=== PATIENT | male | born 1990 | race Two or more races ===

== ENCOUNTER 2016-03-15 19:12 | Emergency (ER) | payer OTHER ==
[~2016-03-15] VITALS: Ht 165.1 cm; Wt 113.4 kg
[~2016-03-15 19:12] MED LIST: CLON2TAB PO; HYDR-429 PO; PARO20TA51 PO
[2016-03-15] MEDS ORDERED: ONDANSETRON 4 MG TAB.RAPDIS ONE (19:46)
[2016-03-15] MEDS ORDERED: LORAZEPAM INJ 2 MG/ML VIAL ONE ×3 (19:46→22:54)
[2016-03-15] MEDS ORDERED: LORAZEPAM INJ 2 MG/ML VIAL IM ONE (20:00)
[2016-03-15] MEDS ORDERED: ONDANSETRON 4 MG TAB.RAPDIS SL ONE (20:00)
[2016-03-15] MEDS ORDERED: LORAZEPAM INJ 2 MG/ML VIAL IV ONE ×2 (21:00→23:00)
[2016-03-15 21:07] LABS: BASOPHILS # (AUTO) 0.4 /CMM (0.0-0.2); BASOPHILS % (AUTO) 2.5 % (0.0-2.0); DIFF TOTAL % 100 %; EOSINOPHILS % (AUTO) 0.2 % (0.0-6.0); HEMATOCRIT 52 % (39-51); HEMOGLOBIN 17.5 g/dL (13.5-17.5); LYMPHOCYTES # (AUTO) 2.1 /CMM (0.8-4.8); LYMPHOCYTES % (AUTO) 12.6 % (20.0-44.0); MEAN CORPUSCULAR HEMOGLOBIN 31 PG (26.0-33.0); MEAN CORPUSCULAR HGB CONC 34 g/dl (31.0-36.0); MEAN CORPUSCULAR VOLUME 92 fL (80-96); MONOCYTES # (AUTO) 0.9 /CMM (0.1-1.30); MONOCYTES % (AUTO) 5.3 % (2.0-12.0); NEUTROPHILS # (AUTO) 12.9 /CMM (1.8-8.9); NEUTROPHILS % (AUTO) 79.4 % (43.0-81.0); PLATELET COUNT (AUTO) 353 /CMM (150-450); RED BLOOD CELL COUNT(AUTO) 5.67 MIL/uL (4.5-6.0); WHITE BLOOD COUNT (AUTO) 16.3 K/uL (4.3-11.0)
[2016-03-15 21:16] LABS: CREATININE 1.3 mg/dL (0.6-1.3); POTASSIUM 3.4 mmol/L (3.5-5.1)
[2016-03-15 21:22] LABS: ALBUMIN 4.5 g/dL (3.4-5.0); BILIRUBIN,DIRECT 0.1 mg/dL (0.0-0.2); BILIRUBIN,TOTAL 0.3 mg/dL (0.2-1.0); INDIRECT BILIRUBIN 0.2 mg/dL (0.0-1.1); TOTAL PROTEIN, SERUM 9.3 g/dL (6.4-8.2)
[2016-03-15] MEDS ORDERED: IV SET PRIMARY 1 EA INFUS.SET MC ONE (22:53)
[2016-03-15] MEDS ORDERED: METOCLOPRAMIDE HCL 10 MG/2 ML VIAL ONE (22:53)
[2016-03-15] MEDS ORDERED: IV NS 0.9% 1,000 ML ONE (22:53)
[2016-03-15] MEDS ORDERED: IV NS 0.9% 1,000 ML BAG IV ONE (23:00)
[2016-03-15] MEDS ORDERED: METOCLOPRAMIDE HCL 10 MG/2 ML VIAL IV ONE (23:00)
[2016-03-16 00:42] VITALS: BP 138/85
== END 2016-03-16 00:43 | disposition home or self-care (01) ==
LOC: ER 19:13
DX: K85.90 Acute pancreatitis without necrosis or infection, unspecified (principal); F10.20 Alcohol dependence, uncomplicated; E87.6 Hypokalemia; F15.93 Other stimulant use, unspecified with withdrawal; F41.9 Anxiety disorder, unspecified; F32.9 Major depressive disorder, single episode, unspecified; Z88.8 Allergy status to other drugs, medicaments and biological substances
CPT/HCPCS: 36415; 80048; 80076; 83690; 85025; 93005; 96361; 96372; 96374; 96375; 96376; 99285; A4606; J2060 ×3; J2765; J7030; Q0162; Z7610

== ENCOUNTER 2016-04-05 21:20 | Emergency (ER) | payer OTHER ==
[~2016-04-05 21:20] MED LIST changes: -HYDR-429 PO; +HYDR-548 PO
== END 2016-04-06 00:14 | disposition left against medical advice (07) ==
LOC: ER 21:22
DX: Z53.21 Procedure and treatment not carried out due to patient leaving prior to being seen by health care provider (principal)

== ENCOUNTER 2016-06-01 04:41 | Emergency (ER) | payer OTHER ==
[~2016-06-01] VITALS: Ht 172.7 cm; Wt 99.8 kg
--- NOTE | 2016-06-01 04:52 | NUR ---
PT ALTERED, BREATHING EFFORTLESSLY ON ROOM AIR, PER EMS, PT HAS BEEN ON A 3 WEEK DRINKING BINDGE AND PUT A KNIFE TO HIS THROAT TONIGHT STATING HE WANTED TO KILL HIMSELF, PT DENIES HI, PT DENIES HEARING VOICES, PT ON MONITOR, MD CARIDAD MADE AWARE WILL CONTINUE TO MONITOR.
[2016-06-01 05:15] LABS: BASOPHILS # (AUTO) 0.1 /CMM (0.0-0.2); BASOPHILS % (AUTO) 0.7 % (0.0-2.0); EOSINOPHILS # (AUTO) 0.1 /CMM (0.0-0.7); EOSINOPHILS % (AUTO) 0.9 % (0.0-6.0); HEMATOCRIT 43 % (39-51); HEMOGLOBIN 14.3 g/dL (13.5-17.5); LYMPHOCYTES # (AUTO) 2.9 /CMM (0.8-4.8); LYMPHOCYTES % (AUTO) 43.1 % (20.0-44.0); MEAN CORPUSCULAR HEMOGLOBIN 32 PG (26.0-33.0); MEAN CORPUSCULAR HGB CONC 33 g/dl (31.0-36.0); MEAN CORPUSCULAR VOLUME 95 fL (80-96); MONOCYTES # (AUTO) 0.7 /CMM (0.1-1.30); NEUTROPHILS % (AUTO) 44.3 % (43.0-81.0); PLATELET COUNT (AUTO) 283 /CMM (150-450); RDW COEFFICIENT OF VARIATION 15.6 (11.5-15.0); RED BLOOD CELL COUNT(AUTO) 4.53 MIL/uL (4.5-6.0); WHITE BLOOD COUNT (AUTO) 6.7 K/uL (4.3-11.0)
[2016-06-01 05:24] LABS: CALCIUM, SERUM 8.6 mg/dL (8.5-10.1); POTASSIUM 3.5 mmol/L (3.5-5.1)
[2016-06-01 05:33] LABS: BILIRUBIN,DIRECT 0.1 mg/dL (0.0-0.2); BILIRUBIN,TOTAL 0.2 mg/dL (0.2-1.0); PHENCYCLIDINE SCREEN,URINE NEGATIVE (NEGATIVE); TOTAL PROTEIN, SERUM 8.3 g/dL (6.4-8.2)
[2016-06-01 05:34] LABS: CANNABINOID, URINE POSITIVE (NEGATIVE); SALICYLATE 1.6 mg/dL (2.8-20.0)
--- NOTE | 2016-06-01 09:00 | NUR ---
RECEIVED SLEEPING,NAD, NO PIV NOTED
--- NOTE | 2016-06-01 09:40 | NUR ---
awake/alert,oriented x 4, denies suicidal/homicidal ideation, verbalized he wants to go home, dr diaz informed
--- NOTE | 2016-06-01 09:50 | NUR ---
DR ELLIS AT BEDSIDE FOR EVAL
[2016-06-01 09:55] VITALS: BP 132/88
--- NOTE | 2016-06-01 10:14 | NUR ---
Patient discharged to home in stable condition. Written and verbal after care instructions given. Patient verbalizes understanding of instruction.
== END 2016-06-01 10:20 | disposition home or self-care (01) ==
LOC: ER 04:45
DX: F10.129 Alcohol abuse with intoxication, unspecified (principal); R45.851 Suicidal ideations; F32.9 Major depressive disorder, single episode, unspecified; F41.9 Anxiety disorder, unspecified; Z88.8 Allergy status to other drugs, medicaments and biological substances
CPT/HCPCS: 36415; 80048-TC; 80076-TC; 80305; 85025-TC; A4606; G0480; G6039-TC; Z7610

== ENCOUNTER 2016-06-12 09:29 | Emergency (ER) | payer OTHER ==
[~2016-06-12] VITALS: Ht 177.8 cm; Wt 111.1 kg
--- NOTE | 2016-06-12 09:30 | NUR ---
AAOX3, BIBRA 39, [facility] NOTED. LAST ETOH WAS YESTERDAY MORNING. SKIN IS WARM AND DRY. AWAITING MD FOR EVAL.
[2016-06-12] MEDS ORDERED: IV NS 0.9% 1,000 ML BAG IV ONE (10:30)
[2016-06-12] MEDS ORDERED: PHARMACY ADD 1 AMP MVI TO IVF DAILY ONE BAG XX PRN (10:30)
[2016-06-12] MEDS ORDERED: LORAZEPAM INJ 2 MG/ML VIAL IV ONE (10:30)
[2016-06-12] MEDS ORDERED: Thiamine 100 MG in IV D5W 50 ML IV SCH (10:30)
[2016-06-12] MEDS ORDERED: Folic acid 1 MG in IV D5W 50 ML IV SCH (10:30)
[2016-06-12] MEDS ORDERED: ZIPRASIDONE MESYLATE 20 MG/VIAL VIAL IM ONE ×2 (10:30→11:53)
[2016-06-12] MEDS ORDERED: IV SET PRIMARY PUMP SET 1 EA INFUS.SET MC ONE (10:39)
[2016-06-12] MEDS ORDERED: LORAZEPAM INJ 2 MG/ML VIAL ONE (10:40)
[2016-06-12 10:44] LABS: APPEARANCE,URINE Clear (CLEAR); BILIRUBIN,URINE Negative (NEGATIVE); BLOOD, URINE Trace-lysed Ery/uL (NEGATIVE); COLOR,URINE Yellow (YELLOW); KETONES,URINE 40 (NEGATIVE); LEUKOCYTE ESTERASE ,URINE Negative (NEGATIVE); NITRITE, URINE Negative (NEGATIVE); PROTEIN,URINE 100 mg/dl (NEGATIVE); UGLUCOSE Negative (NEGATIVE); UROBILINOGEN,URINE 0.2 EU/dL (0.2)
[2016-06-12 10:49] LABS: BASOPHILS % (AUTO) 0.8 % (0.0-2.0); EOSINOPHILS % (AUTO) 0.3 % (0.0-6.0); HEMATOCRIT 46 % (39-51); LYMPHOCYTES # (AUTO) 1.3 /CMM (0.8-4.8); LYMPHOCYTES % (AUTO) 23.3 % (20.0-44.0); MEAN CORPUSCULAR HEMOGLOBIN 31 PG (26.0-33.0); MEAN CORPUSCULAR HGB CONC 33 g/dl (31.0-36.0); MEAN CORPUSCULAR VOLUME 95 fL (80-96); MONOCYTES # (AUTO) 0.6 /CMM (0.1-1.30); MONOCYTES % (AUTO) 10.1 % (2.0-12.0); NEUTROPHILS # (AUTO) 3.6 /CMM (1.8-8.9); NEUTROPHILS % (AUTO) 65.5 % (43.0-81.0); PLATELET COUNT (AUTO) 241 /CMM (150-450); RDW COEFFICIENT OF VARIATION 14.6 (11.5-15.0); WHITE BLOOD COUNT (AUTO) 5.5 K/uL (4.3-11.0)
[2016-06-12 10:53] LABS: CALCIUM, SERUM 9.2 mg/dL (8.5-10.1); CARBON DIOXIDE 25 mmol/L (21-32); CHLORIDE 105 mmol/L (98-107); GFR 91 mL/min (>60); GLUCOSE 122 mg/dL (74-106); PHENCYCLIDINE SCREEN,URINE NEGATIVE (NEGATIVE); POTASSIUM 3.9 mmol/L (3.5-5.1); SODIUM SERUM 142 mmol/L (136-145); UREA NITROGEN, BLOOD 8 mg/dL (7-18)
[2016-06-12 10:59] LABS: ALANINE AMINOTRANSFERASE 190 U/L (12-78); ALBUMIN 4.1 g/dL (3.4-5.0); ALCOHOL, BLOOD < 3 mg/dL (0-0); ALKALINE PHOSPHATASE 56 U/L (46-116); ASPARTATE AMINOTRANSFERASE 124 U/L (15-37); BILIRUBIN,DIRECT 0.3 mg/dL (0.0-0.2); BILIRUBIN,TOTAL 0.9 mg/dL (0.2-1.0); TOTAL PROTEIN, SERUM 8.3 g/dL (6.4-8.2)
[2016-06-12] MEDS ORDERED: MVI ADULT IV ONE (11:00)
[2016-06-12] MEDS ORDERED: FOLIC ACID IV ONE (11:00)
[2016-06-12] MEDS ORDERED: [UNRECOGNIZED DRUG - OTHER] IV ONE (11:00)
[2016-06-12] MEDS ORDERED: THIAMINE IV ONE (11:00)
[2016-06-12 11:01] LABS: ACETAMINOPHEN 0 ug/ml (10-30); ADD URINE CULTURE NO; BACTERIA,URINE Rare /HPF (None Seen); RBC,URINE 0-2 /HPF (0-2); SALICYLATE 0.4 mg/dL (2.8-20.0); SQUAMOUS EPITHELIAL CELL,UR Few /HPF (None Seen); WBC,URINE 0-2 /HPF (0-3)
[2016-06-12 11:03] LABS: CANNABINOID, URINE POSITIVE (NEGATIVE)
--- NOTE | 2016-06-12 11:38 | NUR ---
AMY RN AT BEDSIDE FOR PSYCH EVAL.
[2016-06-12] MEDS ORDERED: clonazePAM 1 MG TABLET PO ONE (12:00)
[2016-06-12] MEDS ORDERED: clonazePAM 1 MG TABLET ONE (12:04)
--- NOTE | 2016-06-12 12:17 | NUR ---
CALLED [facility] FOR S AMBULANCE ETA 1300
--- NOTE | 2016-06-12 13:15 | NUR ---
TRANSFERRED TO [facility] VN IN STABLE CONDITION.
[2016-06-12 13:42] VITALS: BP 142/83
== END 2016-06-12 13:43 | disposition other institution (70) ==
LOC: ER 09:31
DX: F32.9 Major depressive disorder, single episode, unspecified (principal); F41.9 Anxiety disorder, unspecified; I10 Essential (primary) hypertension; Z88.8 Allergy status to other drugs, medicaments and biological substances
CPT/HCPCS: 36415; 71010; 80048; 80076; 80305; 80329; 81001; 85025; 93005; 96365; 96366; 96375; 99285; A4606; G0480 ×2; J2060; J3411; J3486; J3490; J7030; Z7610; 81000-TC; G6039-TC

== ENCOUNTER 2016-07-03 22:22 | Emergency (ER) | payer OTHER ==
[~2016-07-03] VITALS: Ht 177.8 cm; Wt 111.1 kg
[2016-07-03 22:30] VITALS: BP 144/84
--- NOTE | 2016-07-03 23:13 | NUR ---
DR. ABEL AT BEDSIDE FOR EVAL.
[2016-07-03] MEDS ORDERED: MIRTAZAPINE 15 MG TABLET ONE (23:39)
[2016-07-03] MEDS ORDERED: LORAZEPAM 1 MG TABLET ONE (23:39)
--- NOTE | 2016-07-03 23:43 | NUR ---
MOTHER AT BEDSIDE
[2016-07-04] MEDS ORDERED: LORAZEPAM 1 MG TABLET PO ONE
[2016-07-04] MEDS ORDERED: MIRTAZAPINE 15 MG TABLET PO ONE ×2
== END 2016-07-03 23:53 | disposition home or self-care (01) ==
LOC: ER 22:24
DX: F41.9 Anxiety disorder, unspecified (principal); F32.9 Major depressive disorder, single episode, unspecified; I10 Essential (primary) hypertension; Z88.8 Allergy status to other drugs, medicaments and biological substances; F10.20 Alcohol dependence, uncomplicated
CPT/HCPCS: A4606; Z7610

== ENCOUNTER 2016-10-27 15:44 | Emergency (ER) | payer OTHER ==
[~2016-10-27] VITALS: Ht 172.7 cm; Wt 108.9 kg
--- NOTE | 2016-10-27 15:50 | NUR ---
PATIENT PRESENTS TO ER D/T ANXIETY ATTACK, STATING HE FORGOT TO TAKE HIM MEDICATIONS. PATIENT IS FEELING NERVOUS WITH CHEST DISCOMFORT. A/OX 4. NO SOB. VITALS STABLE. SAFETY AND COMFORT MEAURES IN PLACE. AWAITING MD ORDERS.
[2016-10-27] MEDS ORDERED: LORAZEPAM INJ 2 MG/ML VIAL IV STA (16:10)
[2016-10-27] MEDS ORDERED: IV NS 0.9% 1,000 ML BAG IV ONE (16:30)
[2016-10-27] MEDS ORDERED: LORAZEPAM INJ 2 MG/ML VIAL ONE (17:18)
--- NOTE | 2016-10-27 17:30 | NUR ---
NEW IV STARTED ON RIGHT HAND, 20 G. PATIENT MEDICATED PER MD ORDERS.
[2016-10-27 18:44] VITALS: BP 138/82
--- NOTE | 2016-10-27 18:48 | NUR ---
Patient discharged to home in stable condition. Written and verbal after care instructions given. Patient verbalizes understanding of instruction.
== END 2016-10-27 18:44 | disposition home or self-care (01) ==
LOC: ER 15:48
DX: F41.9 Anxiety disorder, unspecified (principal); I10 Essential (primary) hypertension; F32.9 Major depressive disorder, single episode, unspecified; Z88.8 Allergy status to other drugs, medicaments and biological substances
CPT/HCPCS: 96361; 96374; 99284; A4606; J2060; J7030; Z7610

== ENCOUNTER 2016-10-31 02:05 | Inpatient (IN) | payer OTHER ==
[~2016-10-31] VITALS: Ht 180.3 cm; Wt 134.7 kg
[2016-10-31] MEDS ORDERED: ONDANSETRON 4 MG TAB.RAPDIS ONE (02:17)
[2016-10-31] MEDS ORDERED: FAMOTIDINE (20 MG) 20 MG TABLET ONE (02:17)
[2016-10-31] MEDS ORDERED: ONDANSETRON 4 MG TAB.RAPDIS SL ONE (02:30)
[2016-10-31] MEDS ORDERED: FAMOTIDINE (20 MG) 20 MG TABLET PO ONE (02:30)
[2016-10-31 02:43] LABS: BASOPHILS # (AUTO) 0.1 /CMM (0.0-0.2); BASOPHILS % (AUTO) 0.7 % (0.0-2.0); EOSINOPHILS # (AUTO) 0.1 /CMM (0.0-0.7); HEMATOCRIT 47 % (39-51); LYMPHOCYTES # (AUTO) 4.2 /CMM (0.8-4.8); LYMPHOCYTES % (AUTO) 44.4 % (20.0-44.0); MEAN CORPUSCULAR HEMOGLOBIN 32 PG (26.0-33.0); MEAN CORPUSCULAR HGB CONC 34 g/dl (31.0-36.0); MEAN CORPUSCULAR VOLUME 94 fL (80-96); MONOCYTES # (AUTO) 0.8 /CMM (0.1-1.30); MONOCYTES % (AUTO) 8.8 % (2.0-12.0); NEUTROPHILS # (AUTO) 4.3 /CMM (1.8-8.9); NEUTROPHILS % (AUTO) 45.1 % (43.0-81.0); PLATELET COUNT (AUTO) 304 /CMM (150-450); RDW COEFFICIENT OF VARIATION 16.7 (11.5-15.0); RED BLOOD CELL COUNT(AUTO) 5.03 MIL/uL (4.5-6.0); WHITE BLOOD COUNT (AUTO) 9.6 K/uL (4.3-11.0)
[2016-10-31 02:54] LABS: INR 1.03 (0.87-1.13)
[2016-10-31 02:57] LABS: ALBUMIN 4.1 g/dL (3.4-5.0); BILIRUBIN,DIRECT 0.1 mg/dL (0.0-0.2); BILIRUBIN,TOTAL 0.4 mg/dL (0.2-1.0); CALCIUM, SERUM 8.4 mg/dL (8.5-10.1); POTASSIUM 3.2 mmol/L (3.5-5.1); TOTAL PROTEIN, SERUM 8.6 g/dL (6.4-8.2)
--- NOTE | 2016-10-31 03:10 | NUR ---
26 YO MALE BB RA. PT IS ALERT X 3, C/O ABD PAIN. S/C ANXIETY. PT AMBULATED TOP ER BED, SKIN WARM AND DRY, RR EVEN AND UNLABORED. PT GOWNED, PLACED ON REGIONAL SAFETY MANAGER. AWAITING ORDERS FROM PROVIDER
[2016-10-31] MEDS ORDERED: Magnesium 1GM/D5W 100ML PREMIX 200 ML IV ONE (03:39)
[2016-10-31] MEDS ORDERED: ONDANSETRON HCL/PF 4 MG/2 ML VIAL ONE (03:39)
[2016-10-31] MEDS ORDERED: HYDROMORPHONE 1 MG/1 ML DISP.SYRIN ONE (03:40)
[2016-10-31] MEDS ORDERED: POTASSIUM CL. PREMIX PERIPHER. 50 ML ONE (03:40)
--- NOTE | 2016-10-31 03:56 | NUR ---
20G LEFT HAND IV STARTED. MEDICATED PT ORDERED
[2016-10-31] MEDS ORDERED: Magnesium 1 GM/2 ML VIAL IV ONE (04:00)
[2016-10-31] MEDS ORDERED: HYDROMORPHONE INJ 2 MG/ML DISP.SYRIN IV ONE (04:00)
[2016-10-31] MEDS ORDERED: ONDANSETRON HCL/PF 4 MG/2 ML VIAL IVP ONE (04:00)
[2016-10-31] MEDS ORDERED: IV NS 0.9% 1,000 ML BAG IV ONE ×2 (04:00→04:30)
[2016-10-31] MEDS: POTASSIUM CL. PREMIX PERIPHER. 50 ML IV SCH ×4 (04:23→09:04)
--- NOTE | 2016-10-31 04:24 | NUR ---
REPORT GIVEN TO GERMAN MOY FOR DANN
[2016-10-31] MEDS ORDERED: LORAZEPAM 1 MG TABLET ONE (04:34)
[2016-10-31 05:00] VITALS: BP 148/88
[2016-10-31] MEDS ORDERED: HYDROCODONE/APAP 5/325MG 1 EACH TABLET PO PRN (05:00)
[2016-10-31] MEDS ORDERED: ONDANSETRON HCL/PF 4 MG/2 ML VIAL IVP PRN (05:00)
[2016-10-31] MEDS ORDERED: ACETAMINOPHEN 325 MG TABLET PO PRN (05:00)
[2016-10-31] MEDS ORDERED: MAG HYDROX/AL HYDROX/SIMETH 30 ML UDC PO PRN (05:00)
[2016-10-31] MEDS ORDERED: ZOLPIDEM TARTRATE 5 MG TABLET PO PRN (05:00)
[2016-10-31] MEDS ORDERED: Z GUARD REMEDY 2 OZ OINT TP PRN (05:00)
[2016-10-31] MEDS ORDERED: LORAZEPAM INJ 2 MG/ML VIAL IV PRN (05:00)
[2016-10-31] MEDS ORDERED: MAGNESIUM HYDROXIDE 30 ML UDC PO PRN (05:00)
[2016-10-31] MEDS ORDERED: MORPHINE SULFATE INJ 2 MG/ML DISP.SYRIN IV PRN (05:00)
--- NOTE | 2016-10-31 05:10 | NUR ---
PT TRANSPORTED TO [facility] BED WITHOUT INCIDENT
--- NOTE | 2016-10-31 05:10 | NUR ---
ADMISSION NOTES: RECEIVED REPORT FROM BECK MOY, PT CAME IN FOR ABDOMINAL PAIN AND ANXIETY WILL BE ADMITTED FOR ACUTE PANCREATITIS, BROUGHT TO THE UNIT VIA WHEEL CHAIR PT IS A/O X3 AMBULATORY RESPIRATION EVEN AND UNLABORED, ON RA, VS TAKEN AND RECORDED, ORIENTED PT TO UNIT POLICY AND HOURLY ROUNDING, PT IS C/O 5/10 PAIN ON HIS ABDOMEN, ALSO FEELING DEPRESSED AND STATED HE WAS DRINKING HEAVY LIQUOR EVERY DAY 2BOTTLES A DAY AND SMOKING WEEDS AND CANNABIS LAST IS A WEEK AGO, PT HAS RIGHT HAND IV G20, PATENT AND FLUSHING WELL, ON HL, SAFETY PRECAUTIONS FOR FALL INITIATED CALL LIGHT IN REACH WILL CONTINUE TO MONITOR.
[2016-10-31 05:29] VITALS: BP 152/101
[2016-10-31] MEDS ORDERED: LORAZEPAM 1 MG TABLET PO PRN (05:30)
--- NOTE | 2016-10-31 05:30 | NUR ---
RN NOTES: SKIN ASSESSMENT PERFORMED NO SKIN ISSUE NOTED PT'S SKIN IS INTACT, ALSO WILL ADMINISTER 1L NS AT 200ML/HR AND WILL GIVE POTASSIUM REPLACEMENT,
[2016-10-31] MEDS: IV NS 0.9% 1,000 ML IV PRN ×3 (06:03→20:39)
[2016-10-31] MEDS ORDERED: ATEN50TA PO (06:31)
--- NOTE | 2016-10-31 07:00 | NUR ---
RN CLOSING NOTES: PT IN BED, AWAKE, REMAINS ON RA RESPIRATION EVEN AND UNLABORED, IV ACCESS REMAINS PATENT AND FLUSHING WELL, INFUSING WITH NS AT 200ML/HR, ALSO THERE'S ONGOING POTASSIUM REPLACEMENT AT 50ML/HR, VS REMAINS STABLE, NEEDS ATTENDED, WILL ENDORSE TO DAY RN FOR DANN.
--- NOTE | 2016-10-31 07:15 | NUR ---
MS RN NOTES RECEIVED PATIENT IN BED, AWAKE, A/O X4. BREATHING EVEN AND NON LABORED, NO SOB. IV NS INFUSING AT 200ML/HR, TOLERATING WELL. APPEARS CALM AND RELAX. NO C/O PAIN AT THIS TIME. CALL LIGHT WITHIN REACH. WILL CONT TO MONITOR.
[2016-10-31 08:00] VITALS: BP 111/69
[2016-10-31] MEDS: PANTOPRAZOLE 40 MG TABLET.DR PO SCH (08:41)
--- NOTE | 2016-10-31 09:01 | NUR ---
PATIENT IN BED, APPEARS ANXIOUS, NO SOB, ON ROOM AIR. PER PATIENT HE FEELS NERVOUS AND HE IS TAKING KLONOPIN 3 X DAY AT HOME FOR HIS ANXIETY. GIVEN ATIVAN 1MG IV FOR ANXIETY. WILL CONT TO MONITOR PATIENT AND WILL FOLLOW UP WITH MD REGARDING PATIENTS HOME MEDS.
--- NOTE | 2016-10-31 11:24 | NUR ---
Social service consult for possible homelessness. Pt. is a 26 year old male who was admitted to [facility] for pancreatitis. SW met with pt. bedside. Pt. is alert and oriented x 4. Pt. states he resides with his family at [address] [place] [address], [address] in [facility]. Pt's emergency contact are his mother Jessenia and aunt Paris . Pt. stated, he has been drinking alcohol everyday for the past month due to family stressors. Pt. denies using drugs. Pt. has chronic anxiety and takes Klonopin. Pt. does not have a therapist. SW to offer pt. outpatient mental health clinic resources prior to discharge. Pt. denies suicidal/homicidal ideations and visual/auditory hallucinations at this time. Pt. states his family will come to pick him up upon discharge. No other social service needs are required at this time. SW is available if needed. ABHIJIT informed CARY Oliver regarding discharge plan.
[2016-10-31] MEDS: clonazePAM 1 MG TABLET PO PRN ×2 (13:32→20:20)
[2016-10-31 16:00] VITALS: BP_SYST 135; BP_DIAS 80; BP_DIAS 84
[2016-10-31] MEDS: DIAZEPAM 5 MG TABLET PO PRN ×2 (17:34→23:51)
--- NOTE | 2016-10-31 18:57 | NUR ---
MS RN CLOSING NOTES PATIENT IN BED, A/O X4. NOT IN DISTRESS. APPEARS CALM AND RELAX IN BED. IVF NS INFUSING AT 200ML/HR, TOLERATING WELL, NO SOB. POTASSIUM SUPPLEMENTED TODAY. NO C/O PAIN AT THIS TIME. CALL LIGHT WITHIN REACH. WILL ENDORSE TO CIRCLE SAW OPERATOR RN FOR DANN.
--- NOTE | 2016-10-31 19:15 | NUR ---
RN OPEN NOTES RECEIVED PATIENT AWAKE IN BED WITH FAMILY AT BEDSIDE. A/O X4. NO SIGNS OF DISTRESS OR DISCOMFORT. BREATHING EVEN AND UNLABORED. IV ACCESS IN R HAND WITH NS INFUSING, PATENT AND INTACT, NO SIGNS OF REDNESS OR INFILTRATION. DENIES ANY PAIN AT THIS TIME. BED IN LOW HARI POSITION WITH SIDE RAILS X2. CALL LIGHT WITHIN REACH. WILL CONTINUE TO MONITOR.L
[2016-10-31 20:00] VITALS: BP 145/83
--- NOTE | 2016-10-31 20:20 | NUR ---
RN NOTES ADMINISTERED KLONOPIN 2MG ORDERED FOR ANXIETY. VSS. WILL CONTINUE TO MONITOR.
[2016-10-31 20:37] VITALS: BP 145/83
--- NOTE | 2016-10-31 23:51 | NUR ---
RN NOTES ADMINISTERED VALIUM 5MG ORDERED FOR ANXIETY. VSS. WILL CONTINUE TO MONITOR.
[2016-11-01] MEDS: IV NS 0.9% 1,000 ML IV PRN (05:41)
[2016-11-01 06:26] LABS: BASOPHILS % (AUTO) 0.6 % (0.0-2.0); EOSINOPHILS # (AUTO) 0.4 /CMM (0.0-0.7); HEMATOCRIT 43 % (39-51); HEMOGLOBIN 14.4 g/dL (13.5-17.5); LYMPHOCYTES # (AUTO) 2.3 /CMM (0.8-4.8); LYMPHOCYTES % (AUTO) 28.8 % (20.0-44.0); MEAN CORPUSCULAR HEMOGLOBIN 32 PG (26.0-33.0); MEAN CORPUSCULAR HGB CONC 34 g/dl (31.0-36.0); MEAN CORPUSCULAR VOLUME 96 fL (80-96); MONOCYTES # (AUTO) 0.7 /CMM (0.1-1.30); MONOCYTES % (AUTO) 9.3 % (2.0-12.0); NEUTROPHILS # (AUTO) 4.5 /CMM (1.8-8.9); NEUTROPHILS % (AUTO) 56.3 % (43.0-81.0); PLATELET COUNT (AUTO) 223 /CMM (150-450); RDW COEFFICIENT OF VARIATION 16.6 (11.5-15.0); RED BLOOD CELL COUNT(AUTO) 4.48 MIL/uL (4.5-6.0)
[2016-11-01 06:46] LABS: CALCIUM, SERUM 8.2 mg/dL (8.5-10.1); MAGNESIUM 1.6 mg/dL (1.8-2.4); PHOSPHORUS 3.7 mg/dL (2.5-4.9)
--- NOTE | 2016-11-01 06:55 | NUR ---
RN CLOSING NOTES PATIENT RESTING IN BED, EASILY AROUSABLE TO NAME. A/O X4. NO SIGNS OF DISTRESS OR DISCOMFORT. BREATHING EVEN AND UNLABORED. IV ACCESS IN R HAND WITH NS INFUSING, PATENT AND INTACT, NO SIGNS OF REDNESS OR INFILTRATION. DENIES ANY PAIN AT THIS TIME. NO SIGNIFICANT CHANGES THROUGH THE NIGHT. ALL NEEDS MET. BED IN LOW HARI POSITION WITH SIDE RAILS X2. CALL LIGHT WITHIN REACH. WILL ENDORSE TO AM SHIFT FOR DANN.
--- NOTE | 2016-11-01 07:41 | NUR ---
MS RN OPENING NOTE PATIENT IS ALERT AND ORIENTED x4. NO PAIN AT THIS TIME. NO SOB OR DISTRESS NOTED. CALL LIGHT WITHIN REACH. SAFETY MEASURES IMPLEMENTED. ABLE TO COMMUNICATE NEEDS. IV INTACT AND PATENT NO REDNESS OR SWELLING NOTED. AMBULATORY. WILL CONTINUE TO MONITOR
[2016-11-01 08:00] VITALS: BP 108/66
[2016-11-01] MEDS: PANTOPRAZOLE 40 MG TABLET.DR PO SCH (08:11)
--- NOTE | 2016-11-01 08:11 | NUR ---
MS RN NOTE PATIENT BLOOD PRESSURE LOW -108/66. WILL RECHECK.
[2016-11-01] MEDS ORDERED: ATENOLOL 50 MG TABLET PO SCH (09:00)
[2016-11-01] MEDS: clonazePAM 1 MG TABLET PO PRN (10:07)
[2016-11-01] MEDS ORDERED: Magnesium 1GM/D5W 100ML PREMIX 100 ML IV SCH (10:31)
[2016-11-01] MEDS ORDERED: MAGNESIUM OXIDE 400 MG TABLET PO ONE (11:00)
--- NOTE | 2016-11-01 11:10 | NUR ---
MS HARDWARE DEVELOPER NOTE PATIENT IS ALERT AND ORIENTED x4. NO PAIN AT THIS TIME. NO SOB OR DISTRESS NOTED. ALL DUE MEDICATION GIVEN ORDERED. MAGNESIUM-1.6 REPLACEMENT GIVEN PRIOR TO DISCHARGE. ALL BELONGINGS WITH PATIENT. ALL DISCHARGE INSTRUCTIONS GIVEN TO PATIENT, PATIENT ABLE TO RETURN INSTRUCTIONS WITH TEACH BACK. IV REMOVED, SKIN INTACT, NO REDNESS OR SWELLING NOTED. PRESCRIPTIONS GIVEN TO PATIENT, EDUCATED PATIENT ON SIDE EFFECTS AND IF THERE IS AN EMERGENCY TO CALL 911 OR GO TO ER. PATIENT GIVEN BUS TOKEN.
== END 2016-11-01 11:10 | disposition home or self-care (01) | DRG 282 ==
LOC: ER 02:06 → MED 04:19
PROVIDERS: ADMIT Internal Medicine; ATTEND Internal Medicine
DX: K85.20 Alcohol induced acute pancreatitis without necrosis or infection (principal); F13.20 Sedative, hypnotic or anxiolytic dependence, uncomplicated; R56.9 Unspecified convulsions; K76.0 Fatty (change of) liver, not elsewhere classified; I10 Essential (primary) hypertension; F32.9 Major depressive disorder, single episode, unspecified; E87.6 Hypokalemia; E66.9 Obesity, unspecified; F41.9 Anxiety disorder, unspecified; R74.0 Nonspecific elevation of levels of transaminase and lactic acid dehydrogenase [LDH]; F12.90 Cannabis use, unspecified, uncomplicated; Z68.41 Body mass index [BMI] 40.0-44.9, adult; F10.988 Alcohol use, unspecified with other alcohol-induced disorder
CPT/HCPCS: 36415; 71250-TC; 80048-TC; 80076-TC; 83690-TC; 83735-TC; 84100-TC; 85025-TC; 85730-TC; 87081-TC; A4606; J1170; J2060; J2405; J3475; J3480; J7030; Q0162; Z7610

== ENCOUNTER 2017-02-05 09:06 | Emergency (ER) | payer OTHER ==
[~2017-02-05] VITALS: Ht 172.7 cm; Wt 95.3 kg
[~2017-02-05 09:06] MED LIST changes: +ATEN50TA PO; -PARO20TA51 PO
[2017-02-05] MEDS ORDERED: ATENOLOL 50 MG TABLET PO ONE (10:00)
[2017-02-05] MEDS ORDERED: clonazePAM 1 MG TABLET PO ONE (10:00)
[2017-02-05] MEDS ORDERED: LORAZEPAM 1 MG TABLET PO ONE (10:00)
[2017-02-05] MEDS ORDERED: ATENOLOL 50 MG TABLET ONE (10:28)
[2017-02-05 11:02] VITALS: BP 139/91
== END 2017-02-05 11:02 | disposition home or self-care (01) ==
LOC: ER 09:07
DX: F41.9 Anxiety disorder, unspecified (principal); F10.20 Alcohol dependence, uncomplicated; I10 Essential (primary) hypertension; F32.9 Major depressive disorder, single episode, unspecified; Z88.8 Allergy status to other drugs, medicaments and biological substances
CPT/HCPCS: 99284; A4606; Z7610

== ENCOUNTER 2017-04-05 14:04 | Emergency (ER) | payer OTHER ==
[~2017-04-05] VITALS: Ht 172.7 cm; Wt 136.1 kg
[2017-04-05] MEDS ORDERED: ATENOLOL 50 MG TABLET PO ONE (16:30)
[2017-04-05] MEDS ORDERED: clonazePAM 1 MG TABLET PO ONE (16:30)
[2017-04-05] MEDS ORDERED: ATENOLOL 50 MG TABLET ONE (16:52)
[2017-04-05] MEDS ORDERED: clonazePAM 1 MG TABLET ONE (16:53)
[2017-04-05 16:56] VITALS: BP 145/75
== END 2017-04-05 16:59 | disposition home or self-care (01) ==
LOC: ER 14:07
DX: Z76.0 Encounter for issue of repeat prescription (principal); F41.9 Anxiety disorder, unspecified; F32.9 Major depressive disorder, single episode, unspecified; I10 Essential (primary) hypertension; F10.10 Alcohol abuse, uncomplicated
CPT/HCPCS: 99284; A4606; Z7610

== ENCOUNTER 2017-06-26 23:15 | Emergency (ER) | payer OTHER ==
[~2017-06-26] VITALS: Ht 165.1 cm; Wt 90.7 kg
[2017-06-26 23:15] VITALS: BP 107/70
[2017-06-26] MEDS ORDERED: IBUPROFEN 600 MG TABLET PO ONE (23:35)
[2017-06-26] MEDS ORDERED: LORAZEPAM 1 MG TABLET ONE (23:35)
[2017-06-26] MEDS ORDERED: CEFAZOLIN 1 GM ONE (23:35)
[2017-06-26] MEDS: LORAZEPAM 1 MG TABLET PO ONE (23:44)
[2017-06-26] MEDS: CEFAZOLIN 1 GM VIAL IM ONE (23:44)
[2017-06-26] MEDS: IBUPROFEN 600 MG TABLET PO ONE (23:44)
[2017-06-26] MEDS ORDERED: LIDOCAINE 1% INJ 50 ML MDV IJ ONE (23:45)
[2017-06-26] MEDS: LIDOCAINE 1% INJ 50 ML MDV IJ ONE (23:46)
--- NOTE | 2017-06-27 00:26 | NUR ---
PROTECTIVE SIGNAL OPERATOR DEGRASSE BEDSIDE FOR LAC REPAIR
== END 2017-06-27 02:15 | disposition home or self-care (01) ==
LOC: EDBD → ER 23:17
DX: S51.812A Laceration without foreign body of left forearm, initial encounter (principal); F41.9 Anxiety disorder, unspecified; F32.9 Major depressive disorder, single episode, unspecified; F10.10 Alcohol abuse, uncomplicated; I10 Essential (primary) hypertension; Z88.8 Allergy status to other drugs, medicaments and biological substances; X99.1XXA Assault by knife, initial encounter; Y93.89 Activity, other specified; Y92.89 Other specified places as the place of occurrence of the external cause; Y99.8 Other external cause status
CPT/HCPCS: 73090-TC; A4606; A6402; J0690; J3490; Z7610

== ENCOUNTER 2017-07-01 02:50 | Emergency (ER) | payer OTHER ==
--- NOTE | 2017-07-01 03:21 | NUR ---
CALLED PT IN WR. NO REPSONSE. LOOKED OUTSIDE WITH NO SITE OF PATIENT
== END 2017-07-01 03:37 | disposition left against medical advice (07) ==
LOC: EDUNIT# 02:50 → ER 02:57 → EDBD 02:57 → ER 03:37
DX: F41.9 Anxiety disorder, unspecified (principal); Z53.21 Procedure and treatment not carried out due to patient leaving prior to being seen by health care provider

== ENCOUNTER 2017-08-21 11:37 | Emergency (ER) | payer OTHER ==
[~2017-08-21] VITALS: Ht 165.1 cm; Wt 90.7 kg
--- NOTE | 2017-08-21 11:44 | NUR ---
RECIEVED PATIENT TO ED BED 12. PT IS COMPLAINING OF ANXIETY, SHAKING, FAST HEART RATE, NAUSEA AND VOMTIING. PTS STS HE DRANK ALCOHOL LAST NIGHT AND SMOKED MARIJUANA. GOWNED AND PLACED ON CONT MONITORING, NAD RR EVEN AND UNLABORED. ALL NEEDS ARE ATTENDED, WILL CONT TO MONITOR
[2017-08-21 11:58] LABS: BASOPHILS # (AUTO) 0.1 /CMM (0.0-0.2); BASOPHILS % (AUTO) 0.8 % (0.0-2.0); EOSINOPHILS % (AUTO) 1.5 % (0.0-6.0); HEMATOCRIT 47 % (39-51); HEMOGLOBIN 16.4 g/dL (13.5-17.5); LYMPHOCYTES # (AUTO) 2.5 /CMM (0.8-4.8); LYMPHOCYTES % (AUTO) 39.3 % (20.0-44.0); MEAN CORPUSCULAR HGB CONC 35 g/dl (31.0-36.0); MEAN CORPUSCULAR VOLUME 93 fL (80-96); MONOCYTES # (AUTO) 0.5 /CMM (0.1-1.30); MONOCYTES % (AUTO) 8.1 % (2.0-12.0); NEUTROPHILS # (AUTO) 3.2 /CMM (1.8-8.9); NEUTROPHILS % (AUTO) 50.3 % (43.0-81.0); PLATELET COUNT (AUTO) 224 /CMM (150-450); RDW COEFFICIENT OF VARIATION 14.3 (11.5-15.0); RED BLOOD CELL COUNT(AUTO) 5.07 MIL/uL (4.5-6.0); WHITE BLOOD COUNT (AUTO) 6.4 K/uL (4.3-11.0)
[2017-08-21] MEDS ORDERED: FOLIC ACID 1 MG TABLET ONE (11:59)
[2017-08-21] MEDS ORDERED: IV D5/0.45 NACL 500 ML IV ONE (12:00)
[2017-08-21] MEDS ORDERED: LORAZEPAM INJ 2 MG/ML VIAL IV ONE (12:00)
[2017-08-21] MEDS ORDERED: IV NS 0.9% 1,000 ML BAG IV ONE (12:00)
[2017-08-21] MEDS ORDERED: THIAMINE HCL 100 MG TABLET PO ONE (12:00)
[2017-08-21] MEDS ORDERED: FAMOTIDINE/PF INJ 20 MG/2 ML VIAL IV ONE ×2 (12:00)
[2017-08-21] MEDS ORDERED: FOLIC ACID 1 MG TABLET PO ONE (12:00)
[2017-08-21] MEDS ORDERED: THIAMINE HCL 100 MG TABLET ONE (12:00)
[2017-08-21] MEDS ORDERED: LORAZEPAM INJ 2 MG/ML VIAL ONE (12:00)
[2017-08-21 12:06] LABS: CALCIUM, SERUM 8.7 mg/dL (8.5-10.1); POTASSIUM 3.1 mmol/L (3.5-5.1)
[2017-08-21 12:12] LABS: BILIRUBIN,DIRECT 0.2 mg/dL (0.0-0.2); BILIRUBIN,TOTAL 0.5 mg/dL (0.2-1.0); TOTAL PROTEIN, SERUM 8.6 g/dL (6.4-8.2)
--- NOTE | 2017-08-21 13:35 | NUR ---
PT. VERBALIZED UNDERSTANDING OF AFTERCARE INSTRUCTIONS.Patient discharged to home in stable condition. Written and verbal after care instructions given. Patient verbalizes understanding of instruction.
--- NOTE | 2017-08-21 13:35 | NUR ---
IV removed. Catheter intact and site benign. Pressure and 4x4 applied to site. No bleeding noted.
[2017-08-21 13:37] VITALS: BP 142/86
== END 2017-08-21 13:37 | disposition home or self-care (01) ==
LOC: ER 11:42
DX: F41.9 Anxiety disorder, unspecified (principal); F10.20 Alcohol dependence, uncomplicated; K29.20 Alcoholic gastritis without bleeding; R74.0 Nonspecific elevation of levels of transaminase and lactic acid dehydrogenase [LDH]; E87.2 Acidosis; F32.9 Major depressive disorder, single episode, unspecified; Z88.8 Allergy status to other drugs, medicaments and biological substances
CPT/HCPCS: 36415; 80048; 80076; 83690; 85025; 96361; 96374; 96375; 99284; A4606; J2060; J3490 ×3; J7030; Z7610

== ENCOUNTER 2017-08-21 21:08 | Emergency (ER) | payer OTHER ==
[~2017-08-21] VITALS: Ht 167.6 cm; Wt 136.1 kg
[2017-08-21 21:22] VITALS: BP 155/101
--- NOTE | 2017-08-21 22:55 | NUR ---
INFORMED BY SECURITY "PT WALKED OUT"
== END 2017-08-21 22:56 | disposition left against medical advice (07) ==
LOC: ER 21:10
DX: R10.9 Unspecified abdominal pain (principal); F41.9 Anxiety disorder, unspecified; F32.9 Major depressive disorder, single episode, unspecified; I10 Essential (primary) hypertension; F10.10 Alcohol abuse, uncomplicated; Z53.21 Procedure and treatment not carried out due to patient leaving prior to being seen by health care provider
CPT/HCPCS: A4606; Z7610

== ENCOUNTER 2017-10-24 06:45 | Emergency (ER) | payer SELFPAY ==
[~2017-10-24] VITALS: Ht 175.3 cm; Wt 113.4 kg
--- NOTE | 2017-10-24 06:45 | NUR ---
BIB [id number]; ABD PAIN RLQ RADIATING TO RIGHT FLANK 10/10. PT IS ALERT AND ORIENTED ABLE TO AMBULATE WITH STEADY GAIT. CRYING OUT LOUD. SKIN IS WARM AND INTACT. PULSE OX ON. WILL CONTINUE TO MONITOR FOR ANY CHANGES DURING THE SHIFT.
--- NOTE | 2017-10-24 06:46 | NUR ---
ER MD IRAHETA AT BEDSIDE FOR EVAL
[2017-10-24] MEDS ORDERED: HYDROMORPHONE 1 MG/1 ML DISP.SYRIN ONE (07:20)
[2017-10-24] MEDS ORDERED: ONDANSETRON HCL/PF 4 MG/2 ML VIAL ONE ×2 (07:20→08:58)
[2017-10-24] MEDS ORDERED: FAMOTIDINE/PF INJ 20 MG/2 ML VIAL IV ONE (07:20)
[2017-10-24] MEDS: IV LR 1000 ML 1,000 ML IV ONE (07:30)
[2017-10-24] MEDS: ONDANSETRON HCL/PF 4 MG/2 ML VIAL IVP ONE (07:30)
[2017-10-24] MEDS: IV NS 0.9% 1,000 ML BAG IV ONE (07:30)
[2017-10-24] MEDS: FAMOTIDINE/PF INJ 20 MG/2 ML VIAL IV ONE (07:30)
[2017-10-24] MEDS: HYDROMORPHONE INJ 2 MG/ML DISP.SYRIN IV ONE (07:30)
[2017-10-24 07:33] LABS: BASOPHILS # (AUTO) 0.1 /CMM (0.0-0.2); BASOPHILS % (AUTO) 0.9 % (0.0-2.0); EOSINOPHILS % (AUTO) 0.4 % (0.0-6.0); HEMATOCRIT 48 % (39-51); HEMOGLOBIN 16.4 g/dL (13.5-17.5); LYMPHOCYTES # (AUTO) 3.4 /CMM (0.8-4.8); LYMPHOCYTES % (AUTO) 39.6 % (20.0-44.0); MEAN CORPUSCULAR HEMOGLOBIN 32 PG (26.0-33.0); MEAN CORPUSCULAR HGB CONC 34 g/dl (31.0-36.0); MEAN CORPUSCULAR VOLUME 95 fL (80-96); MONOCYTES # (AUTO) 0.5 /CMM (0.1-1.30); MONOCYTES % (AUTO) 5.9 % (2.0-12.0); NEUTROPHILS # (AUTO) 4.5 /CMM (1.8-8.9); NEUTROPHILS % (AUTO) 53.2 % (43.0-81.0); PLATELET COUNT (AUTO) 274 /CMM (150-450); RDW COEFFICIENT OF VARIATION 13.8 (11.5-15.0); RED BLOOD CELL COUNT(AUTO) 5.08 MIL/uL (4.5-6.0); WHITE BLOOD COUNT (AUTO) 8.5 K/uL (4.3-11.0)
--- NOTE | 2017-10-24 07:38 | NUR ---
IV ACCESS STARTED BY SALES SUPPORT MANAGER NURSE, MEDICATED ORDERED. WILL MONITOR.
[2017-10-24 07:44] LABS: CALCIUM, SERUM 8.7 mg/dL (8.5-10.1); POTASSIUM 3.5 mmol/L (3.5-5.1)
[2017-10-24 07:48] LABS: ALBUMIN 4.2 g/dL (3.4-5.0); BILIRUBIN,DIRECT 0.1 mg/dL (0.0-0.2); BILIRUBIN,TOTAL 0.4 mg/dL (0.2-1.0); TOTAL PROTEIN, SERUM 8.4 g/dL (6.4-8.2)
[2017-10-24] MEDS ORDERED: HYDROCODONE/APAP 10/325MG 1 EA TABLET ONE (08:58)
[2017-10-24] MEDS: ONDANSETRON HCL/PF - ER 4 MG/2 ML VIAL IV ONE (08:59)
[2017-10-24] MEDS: HYDROCODONE/APAP 10/325MG 1 EA TABLET PO ONE (08:59)
--- NOTE | 2017-10-24 09:01 | NUR ---
Patient discharged to home in stable condition. Written and verbal after care instructions given. Patient verbalizes understanding of instruction.
--- NOTE | 2017-10-24 09:01 | NUR ---
IV removed. Catheter intact and site benign. Pressure and 4x4 applied to site. No bleeding noted.
[2017-10-24 09:05] VITALS: BP 126/71
== END 2017-10-24 09:06 | disposition home or self-care (01) ==
LOC: ER 06:49
DX: F10.129 Alcohol abuse with intoxication, unspecified (principal); K85.20 Alcohol induced acute pancreatitis without necrosis or infection; I10 Essential (primary) hypertension; F41.9 Anxiety disorder, unspecified; F32.9 Major depressive disorder, single episode, unspecified; Z88.8 Allergy status to other drugs, medicaments and biological substances; Z79.899 Other long term (current) drug therapy; Y90.9 Presence of alcohol in blood, level not specified
CPT/HCPCS: 36415; 71045-TC; 80048-TC; 80076-TC; 83690-TC; 85025-TC; A4606; J1170; J2405; J3490; J7030; J7120; Z7610

== ENCOUNTER 2018-03-31 23:57 | Emergency (ER) | payer SELFPAY ==
[~2018-03-31] VITALS: Ht 177.8 cm; Wt 108.9 kg
[~2018-03-31 23:57] MED LIST changes: +HYDR-4354 PO; -HYDR-548 PO
[2018-04-01 00:01] VITALS: BP 139/86
== END 2018-04-01 01:06 | disposition left against medical advice (07) ==
LOC: ER 04-01 00:02
DX: Z53.21 Procedure and treatment not carried out due to patient leaving prior to being seen by health care provider (principal); R07.9 Chest pain, unspecified; F41.9 Anxiety disorder, unspecified; F32.9 Major depressive disorder, single episode, unspecified; I10 Essential (primary) hypertension

== ENCOUNTER 2020-10-22 11:57 | Emergency (ER) | payer SELFPAY ==
[~2020-10-22] VITALS: Ht 177.8 cm; Wt 130.6 kg
--- NOTE | 2020-10-22 12:10 | NUR ---
home, fever and weakness x 5 days. sisters positive for covid. Patient in bed, alert oriented x4 . respiration regular and unlabored. denies pain. will continue to monitor the patient.
[2020-10-22 12:32] LABS: BASOPHILS % (AUTO) 0.3 % (0.0-2.0); HEMATOCRIT 43 % (39-51); HEMOGLOBIN 14.7 g/dL (13.5-17.5); LYMPHOCYTES # (AUTO) 1.1 K/uL (0.8-4.8); LYMPHOCYTES % (AUTO) 23.7 % (20.0-44.0); MEAN CORPUSCULAR HGB CONC 34 g/dl (31.0-36.0); MEAN CORPUSCULAR VOLUME 89 fL (80-96); MONOCYTES # (AUTO) 0.3 K/uL (0.1-1.30); MONOCYTES % (AUTO) 6.4 % (2.0-12.0); NEUTROPHILS # (AUTO) 3.1 K/uL (1.8-8.9); NEUTROPHILS % (AUTO) 69.6 % (43.0-81.0); PLATELET COUNT (AUTO) 120 K/uL (150-450); RED BLOOD CELL COUNT(AUTO) 4.86 MIL/uL (4.5-6.0); WHITE BLOOD COUNT (AUTO) 4.5 K/uL (4.3-11.0)
[2020-10-22] MEDS: IV NS 0.9% 500 ML IV ONE (12:38)
[2020-10-22] MEDS: IV NS 0.9% 1,000 ML IV ONE (12:40)
[2020-10-22 12:47] LABS: CALCIUM, SERUM 8.1 mg/dL (8.5-10.1); CREATININE 1.3 mg/dL (0.6-1.3); POTASSIUM 3.4 mmol/L (3.5-5.1)
[2020-10-22 12:54] LABS: ALBUMIN 3.6 g/dL (3.4-5.0); BILIRUBIN,TOTAL 0.3 mg/dL (0.2-1.0); TOTAL PROTEIN, SERUM 7.6 g/dL (6.4-8.2)
[2020-10-22 13:00] LABS: D-DIMER 0.54 mg/L(FEU (0.17-0.50)
[2020-10-22] MEDS ORDERED: PRED50TA PO (13:11)
[2020-10-22] MEDS ORDERED: AZIT250T PO (13:11)
--- NOTE | 2020-10-22 13:12 | NUR ---
ZOFRAN 4 MG IV ONCE ORDERED BY DR ELLIS. NOTED AND CARRIED OUT.
[2020-10-22] MEDS ORDERED: ONDANSETRON HCL/PF 4 MG/2 ML VIAL ONE (13:17)
[2020-10-22] MEDS: ONDANSETRON HCL/PF - ER 4 MG/2 ML VIAL IV ONE (13:33)
[2020-10-22 13:35] VITALS: BP 131/75
--- NOTE | 2020-10-22 13:35 | NUR ---
Patient discharged to home in stable condition. Written and verbal after care instructions given. Patient verbalizes understanding of instruction.
== END 2020-10-22 13:36 | disposition home or self-care (01) ==
LOC: ER 12:00
DX: U07.1 COVID-19 (principal); J12.82 Pneumonia due to coronavirus disease 2019; I10 Essential (primary) hypertension; F32.9 Major depressive disorder, single episode, unspecified; F10.10 Alcohol abuse, uncomplicated; Y90.9 Presence of alcohol in blood, level not specified; Z88.6 Allergy status to analgesic agent; Z79.899 Other long term (current) drug therapy
CPT/HCPCS: 36415; 71045; 80053; 83605; 84145; 85025; 85378; 85385; 87040 ×2; 96361; 96374; 99284; J2405 ×2; J7040

== ENCOUNTER 2021-12-30 12:30 | Emergency (ER) | payer SELFPAY ==
[~2021-12-30] VITALS: Ht 172.7 cm; Wt 108.9 kg
[~2021-12-30 12:30] MED LIST changes: +AZIT250T PO; +PRED50TA PO
--- NOTE | 2021-12-30 12:45 | NUR ---
Receved pt 31yrs male came from home by praic c/o abdominale pain since last night
--- NOTE | 2021-12-30 13:00 | NUR ---
SEEN BY DR. RENTERIA
[2021-12-30] MEDS ORDERED: MORPHINE SULFATE INJ 4 MG/ML DISP.SYRIN ONE (13:08)
[2021-12-30] MEDS ORDERED: ONDANSETRON HCL/PF 4 MG/2 ML VIAL ONE (13:08)
[2021-12-30] MEDS ORDERED: PANTOPRAZOLE 40 MG VIAL ONE (13:08)
[2021-12-30] MEDS: IV NS 0.9% 1,000 ML IV ONE (13:12)
[2021-12-30 13:14] LABS: BASOPHILS % (AUTO) 0.6 % (0.0-2.0); EOSINOPHILS % (AUTO) 0.1 % (0.0-6.0); HEMATOCRIT 47 % (39-51); HEMOGLOBIN 16.2 g/dL (13.5-17.5); LYMPHOCYTES % (AUTO) 26.5 % (20.0-44.0); MEAN CORPUSCULAR HGB CONC 35 g/dl (31.0-36.0); MEAN CORPUSCULAR VOLUME 92 fL (80-96); MONOCYTES # (AUTO) 0.6 K/uL (0.1-1.30); MONOCYTES % (AUTO) 7.5 % (2.0-12.0); NEUTROPHILS % (AUTO) 65.3 % (43.0-81.0); PLATELET COUNT (AUTO) 299 K/uL (150-450); RED BLOOD CELL COUNT(AUTO) 5.05 MIL/uL (4.5-6.0); WHITE BLOOD COUNT (AUTO) 7.6 K/uL (4.3-11.0)
[2021-12-30] MEDS: MORPHINE SULFATE INJ 10 MG/ML DISP.SYRIN IV ONE (13:14)
[2021-12-30] MEDS: PANTOPRAZOLE 40 MG VIAL IV ONE (13:14)
[2021-12-30] MEDS: ONDANSETRON HCL/PF 4 MG/2 ML VIAL IV ONE (13:15)
--- NOTE | 2021-12-30 13:15 | NUR ---
INserted ango catheter g 18 on rt arm blood drow and sent to lab
[2021-12-30 13:28] LABS: ALBUMIN 3.9 g/dL (3.4-5.0); BILIRUBIN,TOTAL 0.3 mg/dL (0.2-1.0); CALCIUM, SERUM 8.6 mg/dL (8.5-10.1); CREATININE 1.2 mg/dL (0.6-1.3); POTASSIUM 3.4 mmol/L (3.5-5.1); TOTAL PROTEIN, SERUM 8.2 g/dL (6.4-8.2)
[2021-12-30] MEDS ORDERED: ONDANSETRON HCL/PF 4 MG/2 ML VIAL IVP ONE (14:30)
[2021-12-30] MEDS ORDERED: MAG HYDROX/AL HYDROX/SIMETH 30 ML UDC PO ONE (14:30)
[2021-12-30] MEDS ORDERED: LIDOCAINE VISCOUS 2% UD 15 ML UDC MM ONE (14:30)
[2021-12-30] MEDS ORDERED: LORAZEPAM 1 MG TABLET ONE (15:00)
[2021-12-30] MEDS ORDERED: MAG HYDROX/AL HYDROX/SIMETH 30 ML UDC ONE (15:00)
[2021-12-30] MEDS ORDERED: KETOROLAC TROMETHAMINE 15 MG/ML VIAL ONE (15:00)
[2021-12-30] MEDS: LORAZEPAM 1 MG TABLET PO ONE (15:01)
[2021-12-30] MEDS: KETOROLAC TROMETHAMINE INJ 30 MG/ML VIAL IV ONE (15:03)
[2021-12-30] MEDS: MAG HYDROX/AL HYDROX/SIMETH 30 ML UDC PO ONE (15:04)
--- NOTE | 2021-12-30 16:36 | NUR ---
CALLED FOR A READ.
[2021-12-30] MEDS ORDERED: ATEN50TA PO (16:45)
--- NOTE | 2021-12-30 16:58 | NUR ---
IV removed. Catheter intact and site benign. Pressure and 4x4 applied to site. No bleeding noted.
[2021-12-30 17:00] VITALS: BP 128/65
--- NOTE | 2021-12-30 17:00 | NUR ---
Patient discharged to home in stable condition. Written and verbal after care instructions given. Patient verbalizes understanding of instruction.
[2021-12-31] MEDS ORDERED: GABA-532 PO (09:17)
== END 2021-12-30 17:01 | disposition home or self-care (01) ==
LOC: ER 12:39
DX: F10.20 Alcohol dependence, uncomplicated (principal); R10.13 Epigastric pain; F41.9 Anxiety disorder, unspecified; I10 Essential (primary) hypertension; F32.A Depression, unspecified; Z88.8 Allergy status to other drugs, medicaments and biological substances; Z79.899 Other long term (current) drug therapy; Y90.9 Presence of alcohol in blood, level not specified
CPT/HCPCS: 99285; 96374; 96375; 76705; 96361; 85025; 83690; 36415; 80053; J2270; J2405; J7030; C9113; J1885

== ENCOUNTER 2021-12-31 00:21 | Inpatient (IN) | payer MEDICAID ==
[~2021-12-31] VITALS: Ht 172.7 cm; Wt 108.9 kg
--- NOTE | 2021-12-31 00:45 | NUR ---
[id number] C/O ABD PAIN STARTED THIS MORNING. PATIENT PAIN SCALE 10/10. VOMITED SEVERAL EPISODES IN ER. AAOX4. ABLE TO MAKE NEEDS KNOWN. ATTACHED TO MONITOR. VITALS CHECKED.
--- NOTE | 2021-12-31 00:49 | NUR ---
URINE SPECIMEN SENT TO LAB
[2021-12-31] MEDS ORDERED: LIDOCAINE VISCOUS 2% UD 15 ML UDC MM ONE (01:00)
[2021-12-31] MEDS ORDERED: ONDANSETRON HCL/PF 4 MG/2 ML VIAL IVP ONE (01:00)
[2021-12-31] MEDS ORDERED: MAG HYDROX/AL HYDROX/SIMETH 30 ML UDC PO ONE (01:00)
[2021-12-31] MEDS ORDERED: IV NS 0.9% 1,000 ML BAG IV ONE (01:00)
[2021-12-31] MEDS ORDERED: MAG HYDROX/AL HYDROX/SIMETH 30 ML UDC ONE (01:18)
[2021-12-31] MEDS ORDERED: LIDOCAINE VISCOUS 2% UD 15 ML UDC ONE (01:18)
[2021-12-31] MEDS ORDERED: ONDANSETRON HCL/PF 4 MG/2 ML VIAL ONE (01:18)
--- NOTE | 2021-12-31 01:30 | NUR ---
IV CANNULA G20 INSERTED ON LEFT AC G20
[2021-12-31 01:51] LABS: BASOPHILS # (AUTO) 0.1 K/uL (0.0-0.2); BASOPHILS % (AUTO) 0.6 % (0.0-2.0); EOSINOPHILS % (AUTO) 0.4 % (0.0-6.0); HEMATOCRIT 44 % (39-51); LYMPHOCYTES % (AUTO) 28.1 % (20.0-44.0); MEAN CORPUSCULAR HGB CONC 34 g/dl (31.0-36.0); MEAN CORPUSCULAR VOLUME 93 fL (80-96); MONOCYTES # (AUTO) 0.9 K/uL (0.1-1.30); MONOCYTES % (AUTO) 8.2 % (2.0-12.0); NEUTROPHILS # (AUTO) 6.6 K/uL (1.8-8.9); NEUTROPHILS % (AUTO) 62.7 % (43.0-81.0); PLATELET COUNT (AUTO) 298 K/uL (150-450); RED BLOOD CELL COUNT(AUTO) 4.75 MIL/uL (4.5-6.0); WHITE BLOOD COUNT (AUTO) 10.5 K/uL (4.3-11.0)
[2021-12-31 02:04] LABS: CALCIUM, SERUM 8.3 mg/dL (8.5-10.1); CREATININE 1.3 mg/dL (0.6-1.3)
[2021-12-31 02:11] LABS: ALBUMIN 3.7 g/dL (3.4-5.0); BILIRUBIN,DIRECT 0.1 mg/dL (0.0-0.2); BILIRUBIN,TOTAL 0.4 mg/dL (0.2-1.0); TOTAL PROTEIN, SERUM 7.7 g/dL (6.4-8.2)
[2021-12-31] MEDS ORDERED: MORPHINE SULFATE INJ 2 MG/ML DISP.SYRIN ONE (02:44)
[2021-12-31] MEDS ORDERED: POTASSIUM CHLORIDE 20 MEQ TAB.PRT.SR PO ONE ×2 (02:45→03:00)
[2021-12-31] MEDS ORDERED: MORPHINE SULFATE INJ 2 MG/ML DISP.SYRIN IV ONE (03:00)
--- NOTE | 2021-12-31 03:16 | NUR ---
COVID SWAB DONE AND SENT TO LAB
[2021-12-31] MEDS ORDERED: ACETAMINOPHEN 325 MG TABLET PO PRN (03:30)
[2021-12-31] MEDS ORDERED: MAG HYDROX/AL HYDROX/SIMETH 30 ML UDC PO PRN (03:30)
[2021-12-31] MEDS ORDERED: ONDANSETRON HCL/PF 4 MG/2 ML VIAL IVP PRN (03:30)
[2021-12-31] MEDS ORDERED: MAGNESIUM HYDROXIDE 30 ML UDC PO PRN (03:30)
[2021-12-31] MEDS ORDERED: Z GUARD REMEDY 4 OZ OINT TP PRN (03:30)
--- NOTE | 2021-12-31 07:56 | NUR ---
GOT BED 322-1
--- NOTE | 2021-12-31 08:01 | NUR ---
REPORT GIVEN TO PHILOMENA MOY FOR DANN
--- NOTE | 2021-12-31 08:10 | NUR ---
TRANSFERRED TO BED 322 IN STABLE CONDITION
--- NOTE | 2021-12-31 08:15 | NUR ---
RN NOTE- PT FROM ED FOR ADMIT. BEGIN ADMISSION
--- NOTE | 2021-12-31 08:16 | NUR ---
BUILDING PERFORMANCE CONSULTANT NOTE- 31 Y/O MALE BROUGHT IN BY FAMILY TO ED FOR ABDOMINAL PAIN , N&V. PT W DX OF PANCREATITIS. PMHX- ANXIETY, DEPRESSION, ETOH ABUSE. PT IS FC, W ALLERGIES TO ATARAX. PT VS- BP-134/74, HR- 97, RR- 20, AFEBRILE. AOX4, AMBULATORY W STEADY GAIT, DOHERTY W FROM. SKIN INTACT, AFFECT APPROPRIATE. ORDERS RECDEIVED AND UNDERSTOOD. COMPLYING. PAIN TO ABDOMEN #190 Addendum: 12/31/21 at 0957 by WILLIAM DERAS RN PAIN TO ABDOMEN #10 (1-10). BS + AND HYPOACTIVE ON AUSCULTATION. + GUARDING, + TENDERNESS OVER EPIGASTRIC AREA. LUNGS CLEAR. SIDE RAILS UP, BED LOCKED, CALL LIGHT CLOSE. RX ANALGESICS FOR PAIN RELIEF. MONITOR /. ASSIST
[2021-12-31] MEDS: PANTOPRAZOLE 40 MG VIAL IV SCH (08:32)
[2021-12-31] MEDS: MORPHINE SULFATE INJ 2 MG/ML DISP.SYRIN IV PRN ×2 (08:37→13:08)
[2021-12-31] MEDS: IV NS 0.9% 1,000 ML IV PRN ×2 (08:38→16:45)
[2021-12-31 08:57] VITALS: BP 137/74
[2021-12-31 09:01] LABS: CALCIUM, SERUM 8.3 mg/dL (8.5-10.1); CREATININE 1.3 mg/dL (0.6-1.3); POTASSIUM 3.6 mmol/L (3.5-5.1)
[2021-12-31] MEDS ORDERED: GABA-532 PO (09:17)
--- NOTE | 2021-12-31 13:53 | NUR ---
RN NOTE- DR HARRISON SAW PT. PT REQUESTING FOOD. DR HARRISON ORDERED CONTINUED NPO UNTIL TOMORROW PT STILL W ABDOMINAL DISCOMFORT.
[2021-12-31] MEDS: LORAZEPAM INJ 2 MG/ML VIAL IV PRN ×2 (16:28→22:43)
[2021-12-31 16:50] VITALS: BP 123/81
--- NOTE | 2021-12-31 18:39 | NUR ---
RN CLOSING NOTE PATIENT IN BED, WITH HOB ELEVATED, ALERT AND ORIENTED X4. ABLE TO COMMUNICATE NEEDS WITH THE STAFF. AFEBRILE AND NOT IN ANY FORM OF ACUTE DISTRESS. STILL C/O ABDOMINAL DISCOMFORT AND WAS MEDICATED ORDERED. ON IV HYDRATION OF NS AT 125ML/HR ON LEFT AC 20G, INFUSING WELL. MAINTAINED ON NPO ORDERED. SAFETY MEASURES IN PLACE. KEPT BED IN LOCKED AND IN LOW POSITION TO REDUCE INJURY. ADVISED TO USE THE CALL LIGHT WHEN IN NEED OF ASSISTANCE. ALL NURSING NEEDS ATTENDED.
--- NOTE | 2021-12-31 19:00 | NUR ---
rreceived in bed alert and orientated x4 denies pain call light within his reach smiling
[2021-12-31 20:00] VITALS: BP 130/72
[2022-01-01] MEDS: IV NS 0.9% 1,000 ML IV PRN ×2 (00:11→11:03)
--- NOTE | 2022-01-01 05:26 | NUR ---
CLOSING NOTES: ALERT AND ORIENTATED X4 AMBULATED THE HALLWAY LAST NIGHT SCD'S WHEN IN THE BED STATED THE PAIN IN HIS ABD IS GONE AND HE FEEL BETTER AND IS HUNGARY REMAINS NPO ICE TO MOISTEN THE MOUTH ONLY BS VIA AUSCULTATION ALL 4 QUADRANTS ATIVAN GIVEN X1 AND CALMED HIM DOWN AND ALLOWED HIM TO SLEEP
[2022-01-01 07:18] LABS: BASOPHILS % (AUTO) 0.4 % (0.0-2.0); EOSINOPHILS % (AUTO) 0.6 % (0.0-6.0); HEMATOCRIT 43 % (39-51); HEMOGLOBIN 14.6 g/dL (13.5-17.5); LYMPHOCYTES # (AUTO) 2.4 K/uL (0.8-4.8); LYMPHOCYTES % (AUTO) 23.4 % (20.0-44.0); MEAN CORPUSCULAR HGB CONC 34 g/dl (31.0-36.0); MEAN CORPUSCULAR VOLUME 94 fL (80-96); MONOCYTES # (AUTO) 0.6 K/uL (0.1-1.30); MONOCYTES % (AUTO) 6.5 % (2.0-12.0); NEUTROPHILS # (AUTO) 6.9 K/uL (1.8-8.9); NEUTROPHILS % (AUTO) 69.1 % (43.0-81.0); PLATELET COUNT (AUTO) 211 K/uL (150-450); RED BLOOD CELL COUNT(AUTO) 4.55 MIL/uL (4.5-6.0)
[2022-01-01 08:00] VITALS: BP 133/79
[2022-01-01 09:15] LABS: ALBUMIN 3.4 g/dL (3.4-5.0); BILIRUBIN,TOTAL 1.3 mg/dL (0.2-1.0); CALCIUM, SERUM 8.3 mg/dL (8.5-10.1); CREATININE 1.1 mg/dL (0.6-1.3); MAGNESIUM 1.9 mg/dL (1.8-2.4); PHOSPHORUS 2.5 mg/dL (2.5-4.9); POTASSIUM 3.1 mmol/L (3.5-5.1); TOTAL PROTEIN, SERUM 7.3 g/dL (6.4-8.2)
[2022-01-01] MEDS: PANTOPRAZOLE 40 MG VIAL IV SCH (10:38)
[2022-01-01] MEDS: LORAZEPAM INJ 2 MG/ML VIAL IV PRN (11:08)
[2022-01-01] MEDS ORDERED: POTASSIUM CHLORIDE 20 MEQ TAB.PRT.SR PO ONE (12:00)
--- NOTE | 2022-01-01 12:35 | NUR ---
RN OPENING NOTE PATIENT RECEIVED IN BED, AO X 4, ABLE TO RESPONDS ALL STIMULI. IN NO ACUTE DISTRESS NOTED. RESPIRATORY EVEN AND UNLABORED ON ROOM AIR. SKIN IS WARM TO TOUCH, KEEP CLEAN/DRY. KEPT ELEVATED HOB FOR ENSURE AIRWAY AND ASPIRATION PRECAUTION, ALSO LOWEST POSITION OF THE BED, S/R UP X 2, BED ALARM IS ON AT ALL THE TIMES. ALL SAFETY PRECAUTION APPLIED. CALL LIGHT WITHIN REACH, WILL CONTINUE TO MONITOR.
[2022-01-01 16:00] VITALS: BP 141/80
--- NOTE | 2022-01-01 16:32 | NUR ---
PATIENT DISCHARGE TO HOME AND GIVEN D/C INSTRUCTION INCLUDE NEW MEDICATIONS. PATIENT DENIES DISTRESS, IN STABLE CONDITION, LEFT FACILITY ESCORTED BY STAFF TO THE PRIVATE CAR.
== END 2022-01-01 16:20 | disposition home or self-care (01) | DRG 282 ==
LOC: ER 00:23 → TRANSITION 05:38 → MED 07:59
DX: K85.20 Alcohol induced acute pancreatitis without necrosis or infection (principal); F13.20 Sedative, hypnotic or anxiolytic dependence, uncomplicated; R56.9 Unspecified convulsions; E66.9 Obesity, unspecified; F10.10 Alcohol abuse, uncomplicated; I10 Essential (primary) hypertension; Z20.822 Contact with and (suspected) exposure to COVID-19; Y90.9 Presence of alcohol in blood, level not specified; K86.0 Alcohol-induced chronic pancreatitis; Z68.36 Body mass index [BMI] 36.0-36.9, adult; F41.9 Anxiety disorder, unspecified; F32.A Depression, unspecified; Z88.8 Allergy status to other drugs, medicaments and biological substances; Z79.899 Other long term (current) drug therapy; F12.20 Cannabis dependence, uncomplicated
CPT/HCPCS: 36415; 76705-TC; 80048-TC; 80053-TC; 80076-TC; 83690-TC; 83735-TC; 84100-TC; 85025-TC; 87081-TC; C9113; C9803; G0378; J2060; J2270; J2405; J7030